=== PATIENT | female | born 1975 | race Caucasian/White ===

== ENCOUNTER 2019-02-18 11:07 | Emergency (ER) | payer OTHER | END 2019-02-18 12:20 | disposition home or self-care (01) | LOC: NAV ERS 11:07 | DX: K59.00 Constipation, unspecified (principal); R11.0 Nausea; M79.672 Pain in left foot; M79.671 Pain in right foot; G89.29 Other chronic pain; I10 Essential (primary) hypertension; M19.90 Unspecified osteoarthritis, unspecified site; F41.9 Anxiety disorder, unspecified; F17.210 Nicotine dependence, cigarettes, uncomplicated | CPT/HCPCS: 99283 ==

== ENCOUNTER 2020-09-14 07:46 | Emergency (ER) | payer OTHER | END 2020-09-14 08:16 | disposition home or self-care (01) | LOC: NAV ERS 07:46 | DX: F43.22 Adjustment disorder with anxiety (principal); I10 Essential (primary) hypertension; F17.210 Nicotine dependence, cigarettes, uncomplicated; Z79.899 Other long term (current) drug therapy | CPT/HCPCS: 99283 ==

== ENCOUNTER 2024-02-16 14:13 | Outpatient (CLI) | payer OTHER | END 2024-02-16 14:14 | disposition home or self-care (01) | LOC: NAV RAD 14:13 | PROVIDERS: ATTEND Family Medicine | DX: M54.50 Low back pain, unspecified (principal); M15.0 Primary generalized (osteo)arthritis | CPT/HCPCS: 72100 ==